=== PATIENT | male | born 1975 | race Caucasian/White ===

== ENCOUNTER 2017-02-11 21:44 | Emergency (ER) | payer BC, MEDICAID ==
[~2017-02-11] VITALS: Ht 172.7 cm; Wt 86.0 kg
[2017-02-12] MEDS ORDERED: SODIUM CHLORIDE 0.9% 1,000 ML IV ONE (02:22)
[2017-02-12] MEDS ORDERED: MECLIZINE 25MG TABLET PO ONE (02:30)
[2017-02-12 02:41] LABS: BASOPHILS % 0.9 % (0.0-2.0); EOSINOPHILS % 0.9 % (0.0-5.0); HEMATOCRIT. 45.3 % (42.0-52.0); HEMOGLOBIN. 15.8 g/dL (14.0-18.0); LYMPHOCYTES % 24.2 % (20.0-50.0); MEAN CORPUSCULAR HEMOGLOBIN 30.4 pg (28.0-32.0); MEAN CORPUSCULAR VOLUME 87.3 fL (80.0-94.0); MONOCYTES % 5.7 % (2.0-8.0); NEUTROPHILS % 68.3 % (40.0-76.0); PLATELET 209 x1000/uL (130-400); RED BLOOD CELL COUNT 5.19 mill/uL (4.7-6.1); RED CELL DISTRIBUTION WIDTH 13.8 % (11.6-14.6)
[2017-02-12 02:49] LABS: INR 1.1; PROTHROMBIN TIME 11.1 sec
[2017-02-12 02:54] LABS: CHLORIDE 107 mEq/L (98-107)
[2017-02-12 03:02] LABS: CARBON DIOXIDE 28 mEq/L (21-32)
[2017-02-12 03:20] LABS: CLARITY URINE CLEAR (CLEAR); COLOR URINE YELLOW (YELLOW); SPECIFIC GRAVITY URINE 1.008 (1.005-1.030)
[2017-02-12 03:21] LABS: GLUCOSE URINE NEGATIVE (NEGATIVE); KETONES URINE NEGATIVE (NEGATIVE); LEUKOCYTE ESTERASE URINE NEGATIVE (NEGATIVE); NITRITE URINE NEGATIVE (NEGATIVE); OCCULT BLOOD URINE TRACE (NEGATIVE); PROTEIN URINE NEGATIVE (NEGATIVE); UROBILINOGEN URINE 0.2 E.U./dL (0.2-1.0)
[2017-02-12 05:02] VITALS: BP 120/78
== END 2017-02-12 05:25 | disposition home or self-care (01) ==
LOC: ER 21:44
DX: H81.399 Other peripheral vertigo, unspecified ear (principal); R00.2 Palpitations
CPT/HCPCS: 36415; 80053; 81001; 85025; 85610; 93005; 96360; 96361; 99285; J7030; Z7610; J8597